=== PATIENT | male | born 1960 | race Caucasian/White ===

== ENCOUNTER 2017-09-14 17:24 | Inpatient (IN) | payer BC ==
[~2017-09-14] VITALS: Ht 180.3 cm; Wt 75.5 kg
[2017-09-14 19:14] LABS: Basophils # (auto) 0.1 uL; Basophils % (auto) 0.5 % (0.0-2.0); Eosinophils # (auto) 0.1 uL; Eosinophils % (auto) 0.8 % (0.0-7.0); Hematocrit 43.9 % (41.0-53.0); Lymphocytes # (auto) 1.6 uL; Lymphocytes % (auto) 13.3 % (10.0-50.0); Mean Corpuscular Hemoglobin 35.9 pg (28.0-32.0); Mean Corpuscular Hgb Conc. 34.2 g/dL (32.0-36.0); Mean Corpuscular Volume 105.1 fL (80.0-100.0); Monocytes # (auto) 0.8 uL; Monocytes % (auto) 6.3 % (0.0-12.0); Neutrophils # (auto) 9.7 uL; Neutrophils % (auto) 79.1 % (37.0-80.0); Nucleated Red Blood Cells % 0.1 %; Platelet Count (auto) 285 10^3/uL (140-450); Red Blood Cells 4.18 10^6/uL (4.5-5.90); Red Cell Distribution Width 13.5 % (11.8-14.3); White Blood Cell 12.2 10^3/uL (4.4-10.8)
[2017-09-14 19:18] LABS: Chloride 95 mmol/L (98-107); Sodium 131 mmol/L (136-145)
[2017-09-14 19:24] LABS: Albumin 2.7 g/dL (3.4-5.0); Anion Gap 11 (5-15); BUN/Creatinine Ratio 11.9; Blood Urea Nitrogen 12 mg/dL (7-18); Calcium 8.7 mg/dL (8.5-10.1); Carbon Dioxide 25 mmol/L (21-32); GFR African American 98 mL/min; GFR Non-African American 81 mL/min; Glucose 129 mg/dL (74-106)
[2017-09-14 19:30] LABS: Alanine Aminotransferase 100 U/L (16-61); Alkaline Phosphatase 243 U/L (45-117); Aspartate Aminotransferase 127 U/L (15-37); Bilirubin, Total 0.7 mg/dL (0.2-1.0); Total Protein 7.1 g/dL (6.4-8.2)
[2017-09-14 19:49] LABS: Potassium 2.6 mmol/L (3.5-5.1)
[2017-09-14] MEDS ORDERED: POTASSIUM CHL 10% (20 MEQ/15ML) 15ml ORAL SOLN PO ONE (20:00)
[2017-09-14 20:19] LABS: Prothrombin Time 10.9 sec (9.37-12.3)
[2017-09-14] MEDS ORDERED: ONDANSETRON HCL 4 MG/2 ML VIAL IV ONE (21:30)
[2017-09-14] MEDS ORDERED: MORPHINE SULFATE 4 MG/ML SYR/VIAL IV ONE (21:30)
[2017-09-15 02:31] LABS: Eosinophils # (auto) 0.1 uL; Lymphocytes # (auto) 1.4 uL; Monocytes # (auto) 0.7 uL
[2017-09-15 02:32] LABS: Basophils # (auto) 0 uL; Basophils % (auto) 0.3 % (0.0-2.0); Eosinophils % (auto) 0.8 % (0.0-7.0); Hematocrit 37.2 % (41.0-53.0); Hemoglobin 12.9 g/dL (13.5-17.5); Lymphocytes % (auto) 14.8 % (10.0-50.0); Mean Corpuscular Hemoglobin 36.4 pg (28.0-32.0); Mean Corpuscular Hgb Conc. 34.6 g/dL (32.0-36.0); Mean Corpuscular Volume 105.1 fL (80.0-100.0); Monocytes % (auto) 7.8 % (0.0-12.0); Neutrophils # (auto) 7.3 uL; Neutrophils % (auto) 76.3 % (37.0-80.0); Platelet Count (auto) 195 10^3/uL (140-450); Red Blood Cells 3.54 10^6/uL (4.5-5.90); Red Cell Distribution Width 13.6 % (11.8-14.3); White Blood Cell 9.6 10^3/uL (4.4-10.8)
[2017-09-15 02:50] LABS: Albumin 2.1 g/dL (3.4-5.0); BUN/Creatinine Ratio 15.1; Bilirubin, Total 0.5 mg/dL (0.2-1.0); Calcium 7.9 mg/dL (8.5-10.1); Potassium 3.1 mmol/L (3.5-5.1); Total Protein 5.8 g/dL (6.4-8.2)
[2017-09-15] MEDS ORDERED: POTASSIUM CHL 20 Meq TABLET PO ONE (06:00)
[2017-09-15] MEDS ORDERED: IBUPROFEN 600 MG TAB PO PRN (06:00)
[2017-09-15] MEDS ORDERED: MORPHINE SULFATE 4 MG/ML SYR/VIAL IV PRN (06:00)
[2017-09-15] MEDS ORDERED: HYDROcodone-ACET 5/325MG TAB PO PRN (06:00)
[2017-09-15] MEDS ORDERED: SODIUM CHLORIDE 0.9% 1,000 ML IV SCH (07:15)
[2017-09-15 07:34] LABS: Cholesterol 184 mg/dL (< 200); HDL Cholesterol 30 mg/dL (40-59); LDL Cholesterol 136 mg/dL (< 100); Triglycerides 149 mg/dL (< 150)
[2017-09-15 10:34] VITALS: BP 99/62
[2017-09-15] MEDS ORDERED: LORazepam 2MG/ML-1ML VIAL IV ONE (11:45)
[2017-09-15] MEDS ORDERED: POTASSIUM CHL 10% (20 MEQ/15ML) 15ml ORAL SOLN PO ONE (12:15)
[2017-09-15] MEDS ORDERED: MAGNESIUM SULFATE 1GM/100ML 100 ML IV ONE (12:15)
[2017-09-15 13:00] VITALS: BP 91/53
[2017-09-15 17:00] VITALS: BP 109/67
[2017-09-15] MEDS ORDERED: TAMSULOSIN HYDROCHLORIDE 0.4 MG CAP PO SCH (18:00)
[2017-09-15 18:19] VITALS: BP 99/62
[2017-09-15 18:39] VITALS: BP 109/67
[2017-09-15 19:00] VITALS: BP 109/67
== END 2017-09-15 17:00 | disposition home or self-care (01) | DRG 69 ==
LOC: ER 17:24 → OVERFLOW 17:25 → EAST 09-15 10:01
PROVIDERS: ADMIT Nurse Practitioner Family; ATTEND Internal Medicine
DX: G45.9 Transient cerebral ischemic attack, unspecified (principal); E44.0 Moderate protein-calorie malnutrition; K70.10 Alcoholic hepatitis without ascites; E87.1 Hypo-osmolality and hyponatremia; Z68.23 Body mass index [BMI] 23.0-23.9, adult; E78.5 Hyperlipidemia, unspecified; E87.6 Hypokalemia; F17.210 Nicotine dependence, cigarettes, uncomplicated; G25.0 Essential tremor; I10 Essential (primary) hypertension; N40.0 Benign prostatic hyperplasia without lower urinary tract symptoms; M54.9 Dorsalgia, unspecified; M54.5 Low back pain; K80.20 Calculus of gallbladder without cholecystitis without obstruction
CPT/HCPCS: 36415; 70450; 70551; 71045; 76705; 80053; 80061; 83735; 83880; 84443; 84484; 85025; 85610; 85730; 93005; 93306; 93886; 94761; 96374; 96375; J2405

== ENCOUNTER 2017-09-21 14:20 | Inpatient (IN) | payer BC ==
[~2017-09-21] VITALS: Ht 180.3 cm; Wt 74.4 kg
[2017-09-21] MEDS ORDERED: LIDOCAINE 1% HCL (LOCAL ANESTH.) INJ 20ML MDV ONE (15:50)
[2017-09-21] MEDS ORDERED: LIDOCAINE 1% (LOCAL ANESTH.) PF 5ml SDV IJ ONE (16:00)
[2017-09-21] MEDS ORDERED: ACETAMINOPHEN 325 MG TAB PO PRN (16:15)
[2017-09-21] MEDS ORDERED: NITROGLYCERIN 0.4 MG SL TAB SL PRN (16:15)
[2017-09-21] MEDS ORDERED: ONDANSETRON HCL 4 MG/2 ML VIAL IV PRN (16:15)
[2017-09-21] MEDS ORDERED: DOCUSATE SOD 100 MG CAP PO PRN (16:15)
[2017-09-21] MEDS ORDERED: MORPHINE SULFATE 4 MG/ML SYR/VIAL IV PRN ×2 (16:15)
[2017-09-21] MEDS ORDERED: traMADol HCL 50 MG TAB PO PRN (16:30)
[2017-09-21 17:17] LABS: Chloride 98 mmol/L (98-107); Potassium 3.3 mmol/L (3.5-5.1); Sodium 135 mmol/L (136-145)
[2017-09-21 17:22] LABS: Alanine Aminotransferase 100 U/L (16-61); Albumin 2.4 g/dL (3.4-5.0); Anion Gap 9 (5-15); Aspartate Aminotransferase 149 U/L (15-37); BUN/Creatinine Ratio 8.7; Blood Urea Nitrogen 6 mg/dL (7-18); Calcium 8.8 mg/dL (8.5-10.1); Carbon Dioxide 28 mmol/L (21-32); GFR African American 152 mL/min; GFR Non-African American 126 mL/min; Glucose 171 mg/dL (74-106); Magnesium 1.5 mg/dL (1.6-2.6)
[2017-09-21] MEDS: ZINC SULFATE 220 MG CAP PO SCH (17:23)
[2017-09-21 17:27] LABS: Alkaline Phosphatase 251 U/L (45-117); Bilirubin, Total 0.6 mg/dL (0.2-1.0); Total Protein 6.5 g/dL (6.4-8.2)
[2017-09-21 17:57] LABS: Hematocrit 39.5 % (41.0-53.0); Hemoglobin 13.8 g/dL (13.5-17.5); Mean Corpuscular Volume 105.5 fL (80.0-100.0); Platelet Count (auto) 232 10^3/uL (140-450); Red Blood Cells 3.74 10^6/uL (4.5-5.90); White Blood Cell 8.8 10^3/uL (4.4-10.8)
[2017-09-21 17:58] LABS: Band Neutrophils % (manual) 0; Basophils % (manual) 0 (0.0-2.0); Blast Cells 0; Metamyelocytes % 0; Myelocytes % 0; Promyelocytes % 0; Reactive Lymphocytes 0
[2017-09-21 18:00] LABS: Eosinophils % (manual) 1 (0-7); Lymphocytes % (manual) 16 (10.0-50.0); Monocytes % (manual) 1 (0-12)
[2017-09-21] MEDS ORDERED: POTASSIUM CHL 10 Meq TABLET PO ONE (19:00)
[2017-09-21 20:32] LABS: Urine Bacteria NONE SEEN /hpf (None Seen); Urine Blood Negative /uL (Negative); Urine Mucus FEW (None Seen); Urine WBC 1 /hpf (0 - 3)
[2017-09-21] MEDS ORDERED: MAGNESIUM SULFATE 1GM/100ML 100 ML IV ONE (20:45)
[2017-09-21] MEDS ORDERED: DEXTROSE (50%) 50ML SYRG IV PRN (20:45)
[2017-09-21 21:30] VITALS: BP_SYST 120; BP_DIAS 62; BP_DIAS 68
[2017-09-21] MEDS: ASCORBIC ACID 500 MG TAB PO SCH (21:46)
[2017-09-21] MEDS: SODIUM CHLOR 0.9% PF (SALINE LOCK) 10ML VIAL/SYR IV SCH (21:46)
[2017-09-21] MEDS: FAMOTIDINE 20 MG TAB PO SCH (21:46)
[2017-09-21] MEDS: InsuLIN REG 1unit/0.01ml Soln (100units/ml) SC SCH (21:47)
[2017-09-21] MEDS: ACCU-CHEK COMFORT CURVE STRIP VI SCH (21:47)
[2017-09-21 22:00] VITALS: BP 111/69
[2017-09-22 05:40] VITALS: BP 138/81
[2017-09-22] MEDS: SODIUM CHLOR 0.9% PF (SALINE LOCK) 10ML VIAL/SYR IV SCH ×2 (06:17→15:06)
[2017-09-22] MEDS: InsuLIN REG 1unit/0.01ml Soln (100units/ml) SC SCH ×3 (06:17→17:00)
[2017-09-22] MEDS: ACCU-CHEK COMFORT CURVE STRIP VI SCH ×3 (06:17→17:00)
[2017-09-22 06:47] LABS: Basophils # (auto) 0.1 uL; Eosinophils # (auto) 0.1 uL; Eosinophils % (auto) 1.7 % (0.0-7.0); Neutrophils # (auto) 6.5 uL; Nucleated Red Blood Cells % 0.1 %; White Blood Cell 8.4 10^3/uL (4.4-10.8)
[2017-09-22 06:50] LABS: Basophils % (auto) 0.9 % (0.0-2.0); Hematocrit 36.8 % (41.0-53.0); Hemoglobin 12.9 g/dL (13.5-17.5); Lymphocytes # (auto) 1.2 uL; Lymphocytes % (auto) 13.8 % (10.0-50.0); Mean Corpuscular Hemoglobin 36.6 pg (28.0-32.0); Mean Corpuscular Volume 104.6 fL (80.0-100.0); Monocytes # (auto) 0.6 uL; Monocytes % (auto) 6.7 % (0.0-12.0); Neutrophils % (auto) 76.9 % (37.0-80.0); Platelet Count (auto) 203 10^3/uL (140-450); Red Blood Cells 3.52 10^6/uL (4.5-5.90); Red Cell Distribution Width 13.9 % (11.8-14.3)
[2017-09-22 07:02] LABS: Albumin 2.1 g/dL (3.4-5.0); BUN/Creatinine Ratio 16.7
[2017-09-22 07:04] LABS: Bilirubin, Total 0.5 mg/dL (0.2-1.0); Total Protein 5.9 g/dL (6.4-8.2)
[2017-09-22 07:09] LABS: Potassium 2.8 mmol/L (3.5-5.1)
[2017-09-22] MEDS ORDERED: POTASSIUM CHL 20 Meq TABLET PO ONE ×2 (07:30→16:00)
[2017-09-22] MEDS: Boost Glucose Control 8 Ounces PO SCH ×2 (08:35→12:09)
[2017-09-22 09:00] VITALS: BP 115/69
[2017-09-22] MEDS: ASCORBIC ACID 500 MG TAB PO SCH (09:18)
[2017-09-22] MEDS: FAMOTIDINE 20 MG TAB PO SCH (09:18)
[2017-09-22] MEDS: ZINC SULFATE 220 MG CAP PO SCH (09:18)
[2017-09-22] MEDS ORDERED: MULTIPLE VITAMIN TAB PO SCH (10:00)
[2017-09-22 13:00] VITALS: BP 114/66
[2017-09-22 14:34] VITALS: BP_SYST 116; BP_SYST 123; BP_SYST 91; BP_DIAS 53; BP_DIAS 68; BP_DIAS 72
[2017-09-22 17:01] VITALS: BP 110/69
== END 2017-09-22 18:45 | disposition home or self-care (01) | DRG 312 ==
LOC: EDBD 14:20 → ER 14:20 → TELE 14:21 → TELE-WESTW 20:50
PROVIDERS: ADMIT Internal Medicine; ATTEND Internal Medicine
DX: I95.1 Orthostatic hypotension (principal); R65.10 Systemic inflammatory response syndrome (SIRS) of non-infectious origin without acute organ dysfunction; S09.90XA Unspecified injury of head, initial encounter; E44.0 Moderate protein-calorie malnutrition; E11.65 Type 2 diabetes mellitus with hyperglycemia; E83.42 Hypomagnesemia; W18.30XA Fall on same level, unspecified, initial encounter; S01.01XA Laceration without foreign body of scalp, initial encounter; C44.90 Unspecified malignant neoplasm of skin, unspecified; D63.8 Anemia in other chronic diseases classified elsewhere; R79.89 Other specified abnormal findings of blood chemistry; M54.5 Low back pain; E87.6 Hypokalemia; F17.210 Nicotine dependence, cigarettes, uncomplicated; G89.29 Other chronic pain; I10 Essential (primary) hypertension; Z85.828 Personal history of other malignant neoplasm of skin; Y93.89 Activity, other specified; Y92.89 Other specified places as the place of occurrence of the external cause; Y99.8 Other external cause status; Z82.49 Family history of ischemic heart disease and other diseases of the circulatory system; Z68.22 Body mass index [BMI] 22.0-22.9, adult
CPT/HCPCS: 12004; 36415; 70450; 80053; 81001; 82962; 83036; 83735; 84484; 85007; 85025; 85027; 93005; 96365; J1815; J2001

== ENCOUNTER 2017-10-14 08:46 | Emergency (ER) | payer BC ==
[~2017-10-14] VITALS: Ht 172.7 cm; Wt 77.1 kg
[2017-10-14 08:46] VITALS: BP 0/0
[2017-10-14] MEDS ORDERED: SODIUM BICARBONATE 8.4% INJ 50ML SYRINGE IV ONE (08:47)
[2017-10-14] MEDS ORDERED: CALCIUM CHLOR(10%) 100MG/ML 10ML SYRINGE IV ONE (08:47)
[2017-10-14] MEDS ORDERED: EPINEPHrine HCL 1 MG/10 ML SYRG IV ONE (08:47)
== END 2017-10-14 14:07 | disposition expired ==
LOC: ER 08:46 → EDBD 08:46 → ER 14:07
DX: I46.9 Cardiac arrest, cause unspecified (principal); E11.9 Type 2 diabetes mellitus without complications; I10 Essential (primary) hypertension; E78.5 Hyperlipidemia, unspecified; F17.210 Nicotine dependence, cigarettes, uncomplicated; Z86.73 Personal history of transient ischemic attack (TIA), and cerebral infarction without residual deficits
CPT/HCPCS: 31500; 92950; 99285; J0171